=== PATIENT | female | born 2005 | race Caucasian/White ===

== ENCOUNTER → 2025-04-09 11:21 | Outpatient (CLI) | payer SELFPAY ==
[2025-04-09 12:11] LABS: Influenza A - CEPHEID Flu A NEGATIVE (NEGATIVE); Influenza B - CEPHEID Flu B NEGATIVE (NEGATIVE)
[2025-04-09 12:13] LABS: COVID-19 CEPHEID 4-PLEX PCR Negative (Negative)
== END ==
PROVIDERS: Visit Provider Nurse Practitioner Family
DX: R05.1 Acute cough (principal); J02.9 Acute pharyngitis, unspecified
CPT/HCPCS: 87070; 87637

== ENCOUNTER → 2025-04-09 11:33 | Outpatient (CLI) | payer BC, SELFPAY ==
--- NOTE | 2025-04-09 11:37 | DI.RAD.S_ITS ---
PROCEDURE: XR CHEST 2V INDICATIONS: Cough TECHNIQUE: 2 views of the chest were acquired. COMPARISON: None. FINDINGS: Surgical changes and devices: None. Lungs and pleura: Lungs are clear. No pleural effusions or pneumothorax. Mediastinum: Mediastinal contours are normal. Heart size is normal. Bones and chest wall: No suspicious bony abnormalities. Soft tissues appear unremarkable. IMPRESSION: No acute cardiopulmonary abnormality is seen. Dictated by: Berlin Epps M.D. on 04/09/2025 at 15:14 Approved by: Berlin Epps M.D. on 04/09/2025 at 15:14
== END ==
LOC: RAD 11:37
PROVIDERS: Referring Provider Nurse Practitioner Family; Visit Provider Nurse Practitioner Family
DX: R05.9 Cough, unspecified (principal)
CPT/HCPCS: 71046